=== PATIENT | female | born 1980 | race Caucasian/White ===

== ENCOUNTER 2021-07-03 14:47 | Emergency (ER) | payer OTHER, SELFPAY ==
[2021-07-03 14:50] VITALS: BP 146/83; PULSE 80; RESP 18; TEMP 37; O2SAT 100
--- NOTE | 2021-07-03 14:55 | ED.EYEPROB ---
HPI - Eye Problem General Chief complaint: Eye Problems Stated complaint: Eye Pain Time Seen by Provider: 07/03/21 14:57 Source: patient and RN notes reviewed Mode of arrival: ambulatory Limitations: no limitations History of Present Illness HPI Narrative: 18-logn[age]-year-old female presents to the [facility] with left eye discomfort. Patient wearing heavy make-up. No redness of the eye noted. No blurry vision change in vision. Denies wearing contacts. No trauma to the eye. No drainage noted MD chief complaint: eye pain Related Data Allergies Allergy/AdvReac Type Severity Reaction Status Date / Time No Known Allergies Allergy Unverified 07/03/21 15:06 Review of Systems Review of Systems: All systems reviewed & are unremarkable except as noted in HPI and below Constitutional: Constitutional: Reports no additional constitutional complaints, Denies chills and Denies fever(s) Eyes: Eyes: Reports as per HPI and Denies change in vision Comments: Left eye discomfort ENT: Reports system reviewed and no additional complaints, except as documented Cardiovascular: Cardiovascular: Reports no additional cardiovascular complaints and Denies chest pain Respiratory: Respiratory: Reports no additional respiratory complaints, Denies cough and Denies dyspnea Gastrointestinal: Gastrointestinal: Reports no additional gastrointestinal complaints and Denies abdominal pain Musculoskeletal: Musculoskeletal: Reports no additional musculoskeletal complaints Integumentary/Breasts: Skin/Breast: Reports system reviewed and no additional complaints, except as docu Neurologic: Reports system reviewed and no additional complaints, except as documented Psychiatric: Psychiatric: Reports no additional psychiatric complaints Allergic/Immunologic: Allergic/Immunologic: Reports no additional allergic/immunologic complaints PMFSH Social History Social History Smoking status: Current every day smoker Comments At the time of my signature, I reviewed and agree with the nursing past medical, surgical, social, and family history. There is no relevant family history pertinent to the patient complaint. Exam Const: General: healthy appearing, no acute distress and alert Nutritional Appearance: well nourished Orientation/consciousness: patient oriented x3 Limitations: no limitations HENMT: Head: normal to inspection Eyes: General: appearance normal, both eyes and all related structures Alignment and Position: alignment normal Conjunctivae: conjunctivae normal Sclera: sclerae normal Cornea: corneas normal and fluorescein used Pupils: Equal, round and reactive pupils present EOM: EOMs intact bilaterally Direct Ophthalmoscopy: normal light reflex and no photophobia Other: Large dark of make-up noted under left upper eyelid and when it was inverted Neck: Neck: normal visual inspection, no lymphadenopathy and no meningeal signs Chest: Chest palpation & inspection: normal inspection of the chest Resp: Effort & Inspection: normal respiratory effort and no use of accessory muscles Auscultation: clear to auscultation bilaterally, no crackles, no rales, no rhonchi and no wheezes Cardio: Rate: regular rate Rhythm: regular rhythm Skin: General skin exam: normal color Rashes: no rashes Neuro: General: patient oriented x3, moves all extremities, no meningeal signs and no focal motor deficits Speech: normal speech Gait exam (Neuro): Normal gait present Extrem: General: normal to inspection Psych: Appearance: grossly normal and well kempt Mental Status: mental status grossly normal Affect: normal affect Attitude: cooperative Thought content: Yes Normal thought content present Course Course Emergency Course: Discharge instructions reviewed with patient, as well as provided in writing per nursing staff. The instructions also include specific and strict return/GO TO THE ER as well as f/u informat
== END 2021-07-03 15:34 | disposition home or self-care (01) ==
PROVIDERS: Emergency Provider Nurse Practitioner
DX: T15.12XA Foreign body in conjunctival sac, left eye, initial encounter (principal); X58.XXXA Exposure to other specified factors, initial encounter
CPT/HCPCS: 65205; 99213; A9270; G0463

== ENCOUNTER 2021-10-21 07:22 | Outpatient (CLI) | payer OTHER, SELFPAY ==
--- NOTE | ~2021-10-21 | MM_ITS ---
EXAMINATION: MM screening [place] BI w amy HISTORY: Screening TECHNIQUE: Craniocaudal and mediolateral oblique 3-D tomosynthesis images were obtained and synthetic 2-D images were generated. CAD analysis was submitted and interpreted. COMPARISON: 12/27/2011 BREAST PARENCHYMAL COMPOSITION: The breasts are extremely dense, which lowers the sensitivity of mamm ography. FINDINGS: There is no evidence of suspicious mass, calcification, or architectural distortion to sugg est malignancy in either breast. There has been no suspicious interval change. IMPRESSION: 1. No mammographic evidence of malignancy. 2. Recommend routine screening mammography in one year. BI-RADS Category 1: Negative Reviewed, dictated and finalized at location A.
== END 2021-10-21 07:23 | disposition home or self-care (01) ==
PROVIDERS: Visit Provider Obstetrics & Gynecology
DX: Z12.31 Encounter for screening mammogram for malignant neoplasm of breast (principal)
CPT/HCPCS: 77063; 77067

== ENCOUNTER 2022-03-12 11:45 | Emergency (ER) | payer OTHER, SELFPAY ==
--- NOTE | ~2022-03-12 | XR_ITS ---
EXAMINATION: XR chest 2V DATE: 03/12/2022 12:27 INDICATION: Left upper chest pain. TECHNIQUE: Frontal and lateral views of the chest were obtained. COMPARISON: None. FINDINGS: The lungs are hyperexpanded, consistent with emphysema. No pneumonia, pleural effusion, or pneumothorax. The heart size is normal. IMPRESSION: 1. Emphysema. Reviewed, dictated and finalized at location A. IMPRESSION: 1. Emphysema.
--- NOTE | 2022-03-12 11:49 | ECG_ITS ---
Measurements Intervals [place] Rate: 70 P: 74 [place]: 131 QRS: 70 QRSD: 93 T: 58 QT: 385 QTc: 417 Interpretive Statements SINUS RHYTHM INCOMPLETE RIGHT BUNDLE BRANCH BLOCK NO PREVIOUS ECG AVAILABLE FOR COMPARISON Electronically Signed On 03-13-2022 17:18:04 CDT by Lynn Ortega M.D.
[2022-03-12 11:58] VITALS: BP 128/78; PULSE 77; RESP 20; TEMP 36.8; O2SAT 99
[2022-03-12 12:11] LABS: Basophils Absolute Auto 0.1 K/mm3 (0.0-0.1); Basophils Percent Auto 0.6 % (0.2-1.2); Eosinophils Absolute Auto 0.1 K/mm3 (0-0.3); Eosinophils Percent Auto 0.9 % (0-4.4); Hemoglobin 13.5 g/dL (12.0-15.0); Immature Granulocyte Absolute 0.02 K/mm3 (0.00-0.031); Immature Granulocyte Percent A 0.2 % (0-0.5); Lymphocytes Absolute Auto 1.41 K/mm3 (0.9-3.2); Lymphocytes Percent Auto 16.1 % (18.3-44.2); Mean Corpuscular HGB Conc 33.8 g/dl (32-36); Mean Corpuscular Hemoglobin 30.3 pg (26-34); Mean Corpuscular Volume 89.7 fl (80-100); Mean Platelet Volume 9.3 fl (7.4-10.4); Monocytes Absolute Auto 0.7 K/mm3 (0.1-0.6); Monocytes Percent Auto 7.6 % (2.6-8.5); Neutrophils Absolute Auto 6.5 K/mm3 (1.3-6.7); Neutrophils Percent Auto 74.6 % (45.5-73.1); Platelet Count Result 216 k/mm3 (150-375); Red Blood Count 4.46 M/mm3 (4.2-5.4); Red Cell Distribution Width 13.1 % (11.5-14.5); White Blood Count 8.7 K/mm3 (4.5-10.0)
--- NOTE | 2022-03-12 12:14 | ED.CHESTPAIN ---
HPI - Chest Pain General Chief Complaint: Chest Pain Stated Complaint: chest pain with inspiration Time Seen by Provider: 03/12/22 11:49 History of Present Illness HPI narrative: 42-year-old female presents to the emergency room for evaluation of left anterior inspiratory chest pain since last night. Patient states that she pain has been constant worse with inspiration and when bending forward. Patient reports recent history of COVID. Patient also endorses tobacco use. Denies any radiating pain shortness of breath, nausea vomiting, lightheadedness or syncopal events. Related Data Allergies Allergy/AdvReac Type Severity Reaction Status Date / Time No Known Allergies Allergy Verified 03/12/22 11:49 Review of Systems Review of Systems: CONSTITUTIONAL: Denies fever, chills, or sweats. EYES: Denies visual changes, redness, or discharge. ENT: Denies rhinorrhea, congestion, sore throat, or otalgia. CARDIOVASCULAR: Reproducible chest wall pain RESPIRATORY: Denies cough or dyspnea. GASTROINTESTINAL: Denies abdominal pain, nausea, vomiting, or diarrhea. GENITOURINARY: Denies dysuria or hematuria. SKIN: Denies rash or itching. MUSCULOSKELETAL: Denies back pain, joint pain, or myalgia. NEUROLOGIC: Denies headache, numbness, dizziness, or weakness. PSYCHIATRIC: Denies anxiety or depression. [facility] Social History Social History Smoking status: Current every day smoker Exam Narrative: GENERAL: Well-appearing, well-nourished, no physical limitations, and in no acute distress. HEAD: Normocephalic, atraumatic. EYES: Conjunctivae normal, PERRLA and EOMI. NECK: Supple. No adenopathy or masses. CHEST: Clear to auscultation. No respiratory distress. No wheezes rales or rhonchi. Left anterior and sternal chest wall tenderness HEART: Regular rate and rhythm. No murmur heard. Normal peripheral pulses. EXTREMITIES: Normal range of motion. No edema. No clubbing or cyanosis SKIN: Warm, dry, no rash. No noted wounds NEURO: No focal deficits. Alert and oriented x3. MAEW. CN's II-XI intact bilaterally, normal gait PSYCH: Cooperative. Normal mood and affect. Course Vital Signs Vital signs: Vital Signs Temperature 36.8 C 03/12/22 11:58 Pulse Rate 77 03/12/22 11:58 Respiratory Rate 20 03/12/22 11:58 Blood Pressure 128/78 03/12/22 11:58 Pulse Oximetry 99 03/12/22 11:58 Oxygen Delivery Room Air 03/12/22 11:58 Temperature 36.8 C 03/12/22 11:58 Pulse Rate 77 03/12/22 11:58 Respiratory Rate 20 03/12/22 11:58 Blood Pressure 128/78 03/12/22 11:58 Pulse Oximetry 99 03/12/22 11:58 Oxygen Delivery Room Air 03/12/22 11:58 MDM - Chest Pain Lab Data Result diagrams: 03/12/22 12:05 03/12/22 12:05 Labs: Lab Results 03/12/22 03/12/22 03/12/22 Range/Units 12:05 12:05 12:05 WBC 8.7 (4.5-10.0) K/mm3 RBC 4.46 (4.2-5.4) M/mm3 Hgb 13.5 (12.0-15.0) g/dL Hct 40.0 (37.0-47.0) % MCV 89.7 (80-100) fl MCH 30.3 (26-34) pg MCHC 33.8 (32-36) g/dl RDW 13.1 (11.5-14.5) % Plt Count 216 (150-375) k/mm3 MPV 9.3 (7.4-10.4) fl Immature Gran % (Auto) 0.2 (0-0.5) % Neut % (Auto) 74.6 H (45.5-73.1) % Lymph % (Auto) 16.1 L (18.3-44.2) % Wise % (Auto) 7.6 (2.6-8.5) % Eos % (Auto) 0.9 (0-4.4) % Baso % (Auto) 0.6 (0.2-1.2) % Lymph # (Auto) 1.41 (0.9-3.2) K/mm3 Wise # (Auto) 0.7 H (0.1-0.6) K/mm3 Eos # (Auto) 0.1 (0-0.3) K/mm3 Baso # (Auto) 0.1 (0.0-0.1) K/mm3 Abs Immat Gran (auto) 0.02 (0.00-0.031) K/mm3 Absolute Neuts (auto) 6.5 (1.3-6.7) K/mm3 Absolute Nucleated RBC 0.0 (0.0-0.012) K/mm3 Nucleated RBC % 0.0 (0.0-0.2) % PT 12.7 (11.1-14.7) Seconds INR 1.0 APTT 28.3 (22.3-36.8) SECONDS Sodium 140 (137-145) mmol/L Potassium 3.9 (3.4-5.0) mmol/L Chloride 104 (98-107) mmol/L Carbon Dioxi
[2022-03-12 12:23] LABS: Alanine Aminotransferase 24 U/L (6-35); Albumin Level 4.5 g/dL (3.5-5.1); Alkaline Phosphatase 58 U/L (38-126); Anion Gap 9 mmol/L (8-16); Aspartate Amino Transferase 25 U/L (14-36); Bilirubin,Total 0.6 mg/dL (0.2-1.3); Blood Urea Nitrogen 12 mg/dL (7-17); Calcium 8.9 mg/dL (8.4-10.2); Carbon Dioxide 27 mmol/L (22-30); Chloride 104 mmol/L (98-107); Estimated CRCL calculation 75 ml/min; Estimated Glomerular Filt Rate > 60; Glucose 92 mg/dL (65-110); Lipase 63 U/L (23-300); Potassium 3.9 mmol/L (3.4-5.0); Sodium 140 mmol/L (137-145)
[2022-03-12 12:29] LABS: Prothrombin Time 12.7 Seconds (11.1-14.7)
[2022-03-12 12:30] LABS: Partial Thromboplastin Time 28.3 SECONDS (22.3-36.8)
[2022-03-12 12:34] LABS: Troponin I < 0.012 ng/mL (0.000-0.034)
[2022-03-12 13:03] VITALS: BP 102/66; PULSE 78; RESP 19; O2SAT 99
== END 2022-03-12 13:04 | disposition home or self-care (01) ==
PROVIDERS: Emergency Medicine; Emergency Provider Nurse Practitioner Family
DX: R09.1 Pleurisy (principal); Z86.16 Personal history of COVID-19; F17.200 Nicotine dependence, unspecified, uncomplicated; J43.9 Emphysema, unspecified; I45.10 Unspecified right bundle-branch block
CPT/HCPCS: 36415; 71046; 80053; 83690; 84484; 85025; 85610; 85730; 93005; 96374; 99284; J1100

== ENCOUNTER 2023-07-25 09:00 | Emergency (ER) | payer OTHER, SELFPAY ==
--- NOTE | 2023-07-25 09:13 | ED.EYEPROB ---
HPI - Eye Problem General Chief complaint: Eye Problems Stated complaint: rt eye irritation Time Seen by Provider: 07/25/23 09:10 Source: patient Mode of arrival: ambulatory Limitations: no limitations History of Present Illness HPI Narrative: Patient is a 43-year-old female who presents with right eye irritation for 3 days. Reports redness, itching. Denies any drainage or vision changes. Has been using lubricating eyedrops and allergy eyedrops with mild relief. Related Data Allergies Allergy/AdvReac Type Severity Reaction Status Date / Time No Known Allergies Allergy Verified 07/25/23 09:12 Review of Systems Review of Systems: All systems reviewed & are unremarkable except as noted in HPI and below Constitutional: Constitutional: Denies body ache(s), Denies fever(s), Denies headache(s), Denies malaise and Denies weakness Eyes: Eyes: Denies blurry vision, Denies eye discharge, Reports irritation, Reports itchy eyes, Denies loss of vision and Denies eye pain ENT: Denies otalgia, Denies headache(s), Denies nasal discharge, Denies sinus pain and Denies sore throat Cardiovascular: Cardiovascular: Denies chest pain, Denies irregular heart rhythm and Denies dyspnea Respiratory: Respiratory: Denies dyspnea Gastrointestinal: Gastrointestinal: Denies abdominal pain, Denies diarrhea, Denies nausea and Denies vomiting Musculoskeletal: Musculoskeletal: Denies back pain, Denies myalgias and Denies arthralgias Integumentary/Breasts: Skin/Breast: Denies pruritus and Denies rash Neurologic: Denies headache(s), Denies loss of vision and Denies weakness Psychiatric: Psychiatric: Reports no additional psychiatric complaints Allergic/Immunologic: Allergic/Immunologic: Reports itchy eyes PMFSH Social History Social History Smoking status: Current every day smoker Comments At time of signature, agree with nursing past medical, surgical, social and family history. There is no relevant family history pertinent to the presenting complaint. Exam Const: General: cooperative, healthy appearing, comfortable, no acute distress and well nourished Nutritional Appearance: well nourished Orientation/consciousness: patient oriented x3 Limitations: no limitations HENMT: Head: normal to inspection, normocephalic and atraumatic Ears: external ears normal Face/Nose/Sinus: Normal external nose present, normal facial exam and face symmetric Face and sinus: normal facial exam and face symmetric Mouth: Yes lip normal Eyes: General: appearance normal, both eyes and all related structures Visual Godinez: normal visual godinez by confrontation Alignment and Position: alignment normal and position normal Periorbital: periorbital findings normal Eyelids: eyelids normal Conjunctivae: conjunctival abnormality right conjunctival injection diffuse Sclera: scleral abnormality right scleral injection diffuse Pupils: Equal, round and reactive pupils present EOM: EOMs intact bilaterally Direct Ophthalmoscopy: no photophobia Other: No hyphema, no foreign body under the lids. Neck: Neck: normal visual inspection, full ROM, no lymphadenopathy and no meningeal signs Chest: Chest palpation & inspection: normal inspection of the chest Resp: Effort & Inspection: normal respiratory effort and able to speak in complete sentences Auscultation: clear to auscultation bilaterally Cardio: Rate: regular rate Rhythm: regular rhythm Heart sounds: S1 normal heart sound present and S2 normal heart sound present GI: Inspection: normal to inspection Skin: General skin exam: normal color and no rashes or lesions noted Neuro: General: patient oriented x3, moves all extremities and no meningeal signs Cranial nerves: Yes Equal, round and reactive pupils present Speech: normal speech Gait exam (Neuro): Normal gait present Extrem: General: normal to inspection, full ROM and no edema Psych: Appearance: [place]
[2023-07-25 09:23] VITALS: BP 117/83; PULSE 76; RESP 16; TEMP 36.3; O2SAT 100
== END 2023-07-25 09:23 | disposition home or self-care (01) ==
PROVIDERS: Emergency Provider Nurse Practitioner Family; PCP Obstetrics & Gynecology
DX: H10.89 Other conjunctivitis (principal)
CPT/HCPCS: 99213; G0463

== ENCOUNTER 2024-05-10 09:18 | Outpatient (CLI) | payer OTHER, SELFPAY ==
--- NOTE | ~2024-05-10 | MM_ITS ---
EXAMINATION: MM screening [place] BI w amy HISTORY: Screening TECHNIQUE: Craniocaudal and mediolateral oblique 3-D tomosynthesis images were obtained and synthetic 2-D images were generated. CAD analysis was submitted and interpreted. COMPARISON: 10/21/2021 BREAST PARENCHYMAL COMPOSITION: Dense: The breasts are extremely dense, which lowers the sensitivity of mammography. FINDINGS: The breasts are extremely dense. Recommend correlation with complete bilateral breast ultra sound. There is no evidence of suspicious mass, calcification, or architectural distortion to suggest malignancy in either breast. There has been no suspicious interval change. IMPRESSION: 1. No mammographic evidence of malignancy. Extremely dense breasts. 2. Recommend correlation with complete bilateral breast ultrasound. BI-RADS Category 0: Incomplete: Needs additional imaging evaluation. Reviewed, dictated and finalized at location [] LOP SHUCKER
== END 2024-05-10 09:19 | disposition home or self-care (01) ==
LOC: ANHIMG 09:22
PROVIDERS: PCP Obstetrics & Gynecology; Visit Provider Surgery Plastic and Reconstructive Surgery
DX: Z12.31 Encounter for screening mammogram for malignant neoplasm of breast (principal)
CPT/HCPCS: 77063; 77067

== ENCOUNTER 2024-05-21 13:49 | Outpatient (CLI) | payer OTHER, SELFPAY ==
--- NOTE | ~2024-05-21 | US_ITS ---
US breast BI complete 05/21/2024 14:35 Indication: Dense breasts seen on prior examination. Procedure: High-resolution complete bilateral breast ultrasound including all 4 quadrants in the suba reolar locations. Comparison: Comparison to multiple prior studies sequentially, with oldest reviewed study dated 12/26. Findings: Right breast: At 8:00, 4 cm from the nipple there is a 6 mm intramammary lymph node. At 9:00, 2 cm fr om the nipple there is a slightly irregular shaped around hypoechoic mass measuring 8 mm without inte rnal vascularity. There is posterior acoustic enhancement. The margins are slightly irregular. Left breast: At 2:00, 3 cm from the nipple there is an oval hypoechoic mass with slightly irregular m argins measuring 4 mm. No internal vascularity or posterior features. Impression: 1: Abnormal solid bilateral breast masses including an 8 mm mass in the right breast at 9:00, 2 cm fr om the nipple and a 4 mm mass in the left breast at 2:00, 3 cm from the nipple. Recommend bilateral u ltrasound-guided breast biopsy. BI-RADS CATEGORY 4-SUSPICIOUS ABNORMALITY RECOMMENDATION: Bilateral ultrasound guided breast biopsies recommended. Reviewed, dictated and finalized at location B. [employer] Impression: 1: Abnormal solid bilateral breast masses including an 8 mm mass in the right b reast at 9:00, 2 cm from the nipple and a 4 mm mass in the left breast at 2:00, 3 cm from the nipple. Recommend bilateral ultrasound-guided breast biopsy. BI-RADS CATEGORY 4-SUSPICIOUS ABNORMALITY RECOMMENDATION: Bilateral ultrasound guided breast biopsies recommended.
== END 2024-05-21 13:50 | disposition home or self-care (01) ==
PROVIDERS: PCP Surgery Plastic and Reconstructive Surgery; Visit Provider Obstetrics & Gynecology
DX: R92.8 Other abnormal and inconclusive findings on diagnostic imaging of breast (principal)
CPT/HCPCS: 76641